=== PATIENT | male | born 1965 ===

== ENCOUNTER 2018-05-31 22:06 | Inpatient (IN) ==
[~2018-05-31 22:06] MED LIST: Diphtheria/Tetanus/Pertussis Vaccine Inj 0.5 ML Syringe IM ONE; Etomidate Inj 40 MG/20 ML Vial IV.PUSH ONE; ceFAZolin 2 GM Premix Inj 2 GM/50 ML PIGGYBACK IV.SIG ONE; fentaNYL Citrate Inj 100 MCG/2 ML Ampul ONE
[2018-05-31] MEDS ORDERED: Post-op Orders (for Pharmacy) OTHER ONE (22:25)
[2018-05-31] MEDS ORDERED: Naloxone Inj 0.4 MG/ML Vial IV.PUSH PRN (22:25)
[2018-05-31] MEDS ORDERED: Bisacodyl 10 MG Supp RECTAL PRN (22:25)
[2018-05-31] MEDS ORDERED: fentaNYL Citrate Inj 100 MCG/2 ML Ampul IV.PUSH ONE ×2 (22:29→22:31)
[2018-05-31] MEDS ORDERED: Diphtheria/Tetanus/Pertussis Vaccine Inj 0.5 ML Syringe IM ONE (22:29)
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
[2018-05-31 22:30] LABS: Baso # (Auto) 0.1 th/mm3 (0.0-0.2); Baso % (Auto) 0.5 % (0.0-2.0); Eos # (Auto) 0.1 th/mm3 (0.0-0.4); Eos % (Auto) 0.6 % (0.0-4.0); Hematocrit 40.2 % (39.0-51.0); Lymph # (Auto) 4.2 th/mm3 (1.0-4.8); Lymph % (Auto) 33.1 % (9.0-44.0); Mean Corpuscular HGB Conc 34.8 % (32.0-36.0); Mean Corpuscular Hemoglobin 30.8 pg (27.0-34.0); Mean Corpuscular Volume 88.5 fL (80.0-100.0); Mean Platelet Volume 7.5 fL (7.0-11.0); Mono % (Auto) 7.8 % (0.0-8.0); Neut # (Auto) 7.4 th/mm3 (1.8-7.7); Platelet Count 250 th/mm3 (150-450); Red Blood Count 4.55 mil/mm3 (4.50-5.90); Red Cell Distribution Width 12.9 % (11.6-17.2); White Blood Count 12.7 th/mm3 (4.0-11.0)
[2018-05-31] MEDS ORDERED: Sod Chloride 0.9% Inj 1,000 ML IV.CONT SCH (22:30)
[2018-05-31] MEDS ORDERED: ceFAZolin Inj 2,000 MG in Sodium Chlor 0.9% Inj 80 ML IV.SIG ONE (22:31)
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
[2018-05-31 22:46] LABS: Activated Partial Thrombo Time 23.7 sec (24.3-30.1); Prothrombin Time 10.3 sec (9.8-11.6)
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
[2018-05-31 22:57] LABS: Calcium 7.8 mg/dL (8.5-10.1); Carbon Dioxide 20.5 meq/L (21.0-32.0); Potassium 3.2 meq/L (3.5-5.1)
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
[2018-05-31] MEDS ORDERED: Succinylcholine Inj 100 MG/5 ML Syringe IV.PUSH ONE (23:00)
[2018-05-31] MEDS ORDERED: Phenylephrine/NS 1000 MCG/10ML Syringe IV.PUSH ONE (23:00)
[2018-05-31] MEDS ORDERED: Lidocaine PF 1% Inj 5 ML Syringe OTHER ONE (23:00)
[2018-05-31] MEDS ORDERED: ceFAZolin 2 GM Premix Inj 2 GM/50 ML PIGGYBACK IV.SIG ONE (23:00)
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
[2018-05-31] MEDS ORDERED: Sugammadex Inj 200 MG/2 ML Vial IV.PUSH ONE (23:34)
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
[2018-06-01] MEDS ORDERED: Post-op Orders (for Pharmacy) OTHER STA (01:03)
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
--- NOTE | 2018-06-01 01:20 | XR ---
EXAM DATE: 06/01/2018 12:00 AM EDT AGE/SEX: 89 years / Male INDICATIONS: External fixation of left lower leg fracture CLINICAL DATA: This is the patient's initial encounter. Patient reports that signs and symptoms have been present for 1 day and indicates a pain score of Nonresponsive. MEDICAL/SURGICAL HISTORY: Non-responsive. Non-responsive. [place]PAR[place] [facility] [place] 1V, [place]/2018. . FINDINGS: Multiple intraprocedural fluoroscopy images again demonstrate complex comminuted tibial and fibular f ractures. Fixation screws placed in the proximal and distal tibia as well as the base of the first an d fifth metatarsals. Final image demonstrates improved alignment of the tibiotalar joint with comminu dori calcaneal fracture. CONCLUSION: 1. Left tib-fib ORIF, as above. Electronically signed by: Jono Marie MD 06/01/2018 1:19 AM EDT
[2018-06-01] MEDS ORDERED: fentaNYL Citrate Inj 100 MCG/2 ML Ampul ONE (01:39)
[2018-06-01] MEDS ORDERED: *Meperidine Inj 25 MG/ML Vial PERIprocedural Use ONLY ONE (01:39)
[2018-06-01] MEDS: Gentamicin Inj 100 MG in Sodium Chlor 0.9% Inj 100 ML IV.SIG SCH ×4 (01:48→23:57)
[2018-06-01] MEDS ORDERED: ceFAZolin Inj 2,000 MG in Sodium Chlor 0.9% Inj 80 ML IV.SIG SCH (02:00)
[2018-06-01] MEDS ORDERED: *morphine SULFATE 4 MG/ML PERIprocedure ONLY ONE (02:16)
[2018-06-01] MEDS: ceFAZolin 2 GM Premix Inj 2 GM/50 ML PIGGYBACK IV.SIG SCH ×3 (03:05→18:46)
[2018-06-01] MEDS ORDERED: Chlorhexidine Gluconate 2% 1 Pack (2 Cloths) TOPICAL ONE (03:36)
[2018-06-01] MEDS ORDERED: Sodium Chlor 0.9% Inj 500 ML IV.SIG SCH (04:00)
[2018-06-01] MEDS: Morphine Inj 4 MG/ML Vial IV.PUSH PRN ×6 (06:04→20:29)
[2018-06-01 08:00] LABS: Baso % (Auto) 0.1 % (0.0-2.0); Hemoglobin 9.3 gm/dL (13.0-17.0); Lymph # (Auto) 0.9 th/mm3 (1.0-4.8); Lymph % (Auto) 5.2 % (9.0-44.0); Mean Corpuscular HGB Conc 34.3 % (32.0-36.0); Mean Corpuscular Volume 90.6 fL (80.0-100.0); Mean Platelet Volume 7.5 fL (7.0-11.0); Mono # (Auto) 1.3 th/mm3 (0.0-0.9); Mono % (Auto) 7.2 % (0.0-8.0); Neut # (Auto) 15.2 th/mm3 (1.8-7.7); Neut % (Auto) 87.5 % (16.0-70.0); Platelet Count 182 th/mm3 (150-450); Red Blood Count 2.98 mil/mm3 (4.50-5.90); Red Cell Distribution Width 12.7 % (11.6-17.2); White Blood Count 17.4 th/mm3 (4.0-11.0)
[2018-06-01] MEDS ORDERED: ceFAZolin Inj 1,000 MG in Sodium Chlor 0.9% Inj 100 ML IV.SIG SCH (08:00)
[2018-06-01] MEDS: Pantoprazole Inj 40 MG Vial IV.PUSH SCH (08:17)
[2018-06-01 08:22] LABS: Anion Gap 10 meq/L (5-15); Blood Urea Nitrogen 13 mg/dL (7-18); Calcium 7.2 mg/dL (8.5-10.1); Chloride 107 meq/L (98-107); Glomerular Filtration Rate Greater Than 89 mL/min (>89); Glucose,Random 132 mg/dL (74-106); Potassium 4.1 meq/L (3.5-5.1); Sodium 139 meq/L (136-145)
[2018-06-01 08:34] LABS: Total Protein 5.2 g/dL (6.4-8.2)
[2018-06-01] MEDS: Senna/Docusate Sodium 8.6/50 MG Tablet PO SCH ×2 (08:39→20:30)
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
[2018-06-01] MEDS: Enoxaparin Inj 30 MG/0.3 ML Syringe SQ SCH ×2 (12:11→22:04)
--- NOTE | 2018-06-01 15:24 | ECG ---
Date Performed: 06/01/2018 Time Performed: 05:04:38 PTAGE: 89 years EKG: SINUS TACHYCARDIA NONSPECIFIC T-WAVE ABNORMALITY ABNORMAL RHYTHM ECG INTERPRETATION BASED O N A DEFAULT AGE OF 38 YEARS NO PREVIOUS TRACING DOCTOR: Mary Ann Smith Interpretating Date/Time 06/01/2018 15:26:39
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
[2018-06-01 19:26] LABS: Hematocrit 23.3 % (39.0-51.0); Hemoglobin 7.9 gm/dL (13.0-17.0)
[2018-06-02 04:20] LABS: Baso # (Auto) 0.1 th/mm3 (0.0-0.2); Baso % (Auto) 0.4 % (0.0-2.0); Eos % (Auto) 0.1 % (0.0-4.0); Lymph # (Auto) 1.7 th/mm3 (1.0-4.8); Lymph % (Auto) 14.4 % (9.0-44.0); Mean Corpuscular HGB Conc 34.4 % (32.0-36.0); Mean Corpuscular Hemoglobin 30.9 pg (27.0-34.0); Mean Corpuscular Volume 90.1 fL (80.0-100.0); Mean Platelet Volume 7.5 fL (7.0-11.0); Mono # (Auto) 1.3 th/mm3 (0.0-0.9); Mono % (Auto) 11.3 % (0.0-8.0); Neut # (Auto) 8.5 th/mm3 (1.8-7.7); Neut % (Auto) 73.8 % (16.0-70.0); Platelet Count 149 th/mm3 (150-450); Red Blood Count 2.25 mil/mm3 (4.50-5.90); White Blood Count 11.5 th/mm3 (4.0-11.0)
[2018-06-02 04:33] LABS: Hematocrit 20.3 % (39.0-51.0)
[2018-06-02] MEDS: Morphine Inj 4 MG/ML Vial IV.PUSH PRN ×3 (05:50→11:30)
[2018-06-02 06:25] LABS: Platelet Estimate Normal (Normal); Platelet Morphology Normal (Normal); RBC Morphology Normal (Normal)
--- NOTE | 2018-06-02 06:40 | P.PNOP ---
Subjective Interval history: s/p left tibia and calcaneus fractures with degloving and wound vac application by Dr Stef Garcia Physical Exam Vital signs: Vital Signs 06/01/18 08:00 06/01/18 12:00 06/01/18 16:00 Temperature 98.0 F 98.1 F 98.5 F Pulse Rate 108 H 103 H 105 H Respiratory Rate 18 18 18 Blood Pressure 113/69 110/70 132/68 Pulse Oximetry 100 99 96 06/01/18 20:00 06/02/18 00:00 06/02/18 05:36 Temperature 99.2 F 99.3 F 98.7 F Pulse Rate 108 H 115 H 103 H Respiratory Rate 20 20 18 Blood Pressure 123/77 130/73 118/71 Pulse Oximetry 96 99 06/02/18 05:51 Temperature 98.2 F Pulse Rate 108 H Respiratory Rate 18 Blood Pressure 108/68 Pulse Oximetry 94 L Intake & Output 06/01/18 06/01/18 06/02/18 06:59 18:59 06:59 Intake Total 4070 / 4070 1255.0 / 1255.0 1152.5 / 1152.5 Output Total 1240 / 1240 160 / 160 20 / 20 Balance 2830 / 2830 1095.0 / 1095.0 1132.5 / 1132.5 Weight 89.358 kg Intake: IV 50 / 50 1255.0 / 1255.0 1152.5 / 1152.5 LR 1000 mL Inj 1,000 ML @ 100 1000 / 1000 1000 / 1000 mls/hr IV.CONT .Q10H [facility] Rx#: [id number] Gentamicin Inj 100 MG In NS Inj 205.0 / 205.0 102.5 / 102.5 100 ML @ 102.5 mls/hr IV.SIG Q8H [facility] Rx#:[id number] Ancef 2 GM Premix Inj 2 gm In 50 / 50 50 / 50 50 / 50 50 ml @ 100 mls/hr IV.SIG Q8H [facility] Rx#:[id number] Oral 320 / 320 Anesthesia Amount 3700 / 3700 Intake (Blood Product) Amt 0 / 0 Rbc As-3 Leukoreduced Unit 0 / 0 [id number] Output: Estimated Blood Loss 500 / 500 Urine Amount (Catheter) 600 / 600 Indwelling Urethral Catheter 600 / 600 Wound Vac Amount 140 / 140 160 / 160 20 / 20 Left Leg 160 / 160 Left Lower Leg 140 / 140 20 / 20 Other: Mode Setting Left Leg Continuous Continuous Left Lower Leg Continuous Continuous # Voids 2 Date of Last Bowel Movement 05/31/18 05/31/18 05/31/18 Weight On Admission 89.4 kg Narrative: LLE: +vac. good seal. nvi. +exfix and splint - Urinary Catheter Management Indwelling Urethral Catheter Cath placed during this visit: yes Reason for continuing: Other continuation reason Insertion date: 05/31/18 Results - Labs CBC & Chem 7: 06/02/18 03:53 06/01/18 07:20 Laboratory Results - last 24 hr 06/01/18 06/01/18 06/01/18 07:20 07:20 18:54 WBC 17.4 H RBC 2.98 L Hgb 9.3 L D 7.9 L Hct 27.0 L 23.3 L MCV 90.6 MCH 31.0 MCHC 34.3 RDW 12.7 Plt Count 182 MPV 7.5 Prelim Diff (Auto) Neut % (Auto) 87.5 H Lymph % (Auto) 5.2 L [place] % (Auto) 7.2 Eos % (Auto) 0.0 Baso % (Auto) 0.1 Neut # (Auto) 15.2 H Lymph # (Auto) 0.9 L [place] # (Auto) 1.3 H Eos # (Auto) 0.0 Baso # (Auto) 0.0 WBC Differential . Diff Scan Differential Comment Auto diff final Platelet Estimate Platelet Morphology RBC Morphology Sodium 139 Potassium 4.1 D Chloride 107 Carbon Dioxide 22.0 Anion Gap 10 BUN 13 Creatinine 0.75 Estimated GFR Greater than 89 Random Glucose 132 H Calcium 7.2 L* Prot Corrected Calcium 8.2 L Total Protein 5.2 L MTS Gel Crossmatch 06/02/18 06/02/18 03:53 04:42 WBC 11.5 H RBC 2.25 L Hgb 7.0 L Hct 20.3 L* MCV 90.1 MCH 30.9 MCHC 34.4 RDW 13.0 Plt Count 149 L MPV 7.5 Prelim Diff (Auto) Slide review pending Neut % (Auto) 73.8 H Lymph % (Auto) 14.4 [place] % (Auto) 11.3 H Eos % (Auto) 0.1 Baso % (Auto) 0.4 Neut # (Auto) 8.5 H Lymph # (Auto) 1.7 [place] # (Auto) 1.3 H Eos # (Auto) 0.0 Baso # (Auto) 0.1 WBC Differential . Diff Scan Auto diff confirmed Differential Comment . Platelet Estimate Normal Platelet Morphology Normal RBC Morphology Normal Sodium Potassium Chloride Carbon Dioxide Anion Gap BUN Creatinine Estimated GFR Random Glucose Calcium Prot Corrected Calcium Total Protein MTS Gel Crossmatch See Detail - Imaging Impressions Ankle CT 06/01/18 00:00 CONCLUSION: 1. Severely comminuted fracture of the talus. 2. Comminuted fracture of the calcaneus. 3. Tibial and fibular fractures again noted with external fixation device in place. Assessment and Plan - Assessment and Plan 1) Grade 3 open left tibia fracture, segmental. 2) Open left calcaneus fracture. 3) Unstable left bimalleolar ankle fracture dislocation. 4) Degloving injury left ankle and foot PLAN: plan for OR today with Dr Parekh for repeat I&D and revision of exfix. possible IMN of tibia depending on soft tissue sign consents
[2018-06-02 06:46] LABS: Chloride 105 meq/L (98-107); Potassium 3.9 meq/L (3.5-5.1); Sodium 140 meq/L (136-145)
[2018-06-02 06:47] LABS: Anion Gap 11 meq/L (5-15); Blood Urea Nitrogen 13 mg/dL (7-18); Calcium 7.1 mg/dL (8.5-10.1); Creatine Kinase 831 U/L (39-308); Glomerular Filtration Rate Greater Than 89 mL/min (>89); Glucose,Random 107 mg/dL (74-106)
[2018-06-02 07:15] LABS: CKMB Percent 1.5 % (0.0-4.0); Creatine Kinase MB 12.2 ng/mL (0.5-3.6); Total Protein 5.2 g/dL (6.4-8.2)
[2018-06-02] MEDS: Senna/Docusate Sodium 8.6/50 MG Tablet PO SCH ×2 (08:04→20:53)
[2018-06-02] MEDS: Enoxaparin Inj 30 MG/0.3 ML Syringe SQ SCH ×2 (08:04→20:52)
[2018-06-02] MEDS: Gentamicin Inj 100 MG in Sodium Chlor 0.9% Inj 100 ML IV.SIG SCH (08:04)
[2018-06-02] MEDS: Pantoprazole Inj 40 MG Vial IV.PUSH SCH (08:05)
[2018-06-02] MEDS ORDERED: Neostigmine Inj 5 MG/5 ML Syringe IV.PUSH ONE (08:57)
[2018-06-02] MEDS ORDERED: Glycopyrrolate Inj 1 MG/5 ML Syringe IV.PUSH ONE (08:57)
[2018-06-02] MEDS ORDERED: Phenylephrine/NS 1000 MCG/10ML Syringe IV.PUSH ONE (08:57)
[2018-06-02] MEDS ORDERED: Lidocaine PF 1% Inj 5 ML Syringe OTHER ONE (08:57)
[2018-06-02] MEDS ORDERED: Post-op Orders (for Pharmacy) OTHER STA (10:09)
--- NOTE | 2018-06-02 10:19 | P.OP ---
- Preoperative Diagnosis (1) Open left calcaneal fracture (2) Open fracture of left distal tibia, type III, with routine healing (3) Fracture of left talus (4) Bimalleolar fracture of left ankle Date of procedure: 06/02/18 Procedure: Irrigation and debridement of open left tibia fracture, irrigation and debridement of open left calcaneus fracture, open reduction internal fixation left calcaneus fracture, revision of external fixation, application of wound VAC dressing Anesthesia: GETA Surgeon: Jenaro Bennett MD Pumper Gager Apprentice: EZ Castro PA-C The surgical procedure was assisted by my physician assistant executive housekeeper. My P.A. presence was necessary throughout this case for the manipulation and positioning of the surgical extremity. My P.A. was assisting me throughout the duration of this procedure. The skill set of a physician assistant executive housekeeper was medically necessary to complete this procedure. During the surgical case the surgical pathologist was working at the back table and the physician assistant executive housekeeper was directly assisting me. Operation and Findings: Felicitas is a 52-year-old male who sustained a near amputation type injury to his left lower extremity. He was taken to the operating room on night of injury for irrigation debridement of open fractures and external fixation. He returned to the operating room today. He was given IV sedation and general anesthesia. Patient was logrolled and spinal precautions were maintained during positioning of patient. He was placed supine on the operating room table. Timeout procedure was performed. At this point a portion of the external fixator was removed. Clamps were loosened. Clamps and bars were removed. The pins were left in place. Left leg was prepped with alcohol followed Hibiclens and draped usual sterile fashion. IV antibiotics were administered. Procedure began with irrigation debridement of the left tibia. The proximal tibia fracture was exposed. Curettes and rongeurs were used to debride bone. Pulsatile lavage was then used to copiously irrigate the wound. Overall the wound appeared to be clean. The skin was not closable over the tibia fracture. Next, attention was turned towards to the left calcaneus. The traumatic lacerations were opened around the foot. The calcaneus fracture was visualized. Curettes and rongeurs were used to debride bone. Overall the wound appeared to be relatively clean. The wound was now thoroughly irrigated with pulsatile lavage. The calcaneus fracture was visualized through the open wounds. Decision was made to proceed with open reduction internal fixation. The posterior tuberosity fragments were reduced. A fracture tenaculum was placed around the calcaneus through the existing open wounds. No new incisions were necessary. The fracture keyed in excellent alignment. 3 guide pins for the 4.0 cannulated screws were placed from superior to inferior. Fluoroscopy confirmed appropriate guidepin placement. Screw lengths were measured. Appropriate length screws were now placed. Good compression was obtained. The traumatic lacerations were now closed with 3-0 PDS and 3-0 nylon. At this point the external fixator was placed back onto the pins. Traction was applied. Fractures were manipulated. Fractures were held in a reduced position. External fixator was reconstructed. Clamps were tightened to hold reduction. Fluoroscopy confirmed reasonable alignment of the tibia and ankle fractures. Last attention was turned towards wound VAC dressing. VAC dressings were cut to fit the wound. There was a wound over the tibia as well as over the medial ankle which is not closable. VAC dressings were sealed appropriately. Sterile dressings were applied. Patient was awakened and transferred to recovery room in stable condition. Needle sponge counts were correct.
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
--- NOTE | 2018-06-02 11:26 | P.PNOP ---
Subjective Interval history: POD 0 s/p I&D with ORIF left calcaneus and revision exfix stable in pacu Physical Exam Vital signs: Vital Signs 06/01/18 12:00 06/01/18 16:00 06/01/18 20:00 Temperature 98.1 F 98.5 F 99.2 F Pulse Rate 103 H 105 H 108 H Respiratory Rate 18 18 20 Blood Pressure 110/70 132/68 123/77 Pulse Oximetry 99 96 96 06/02/18 00:00 06/02/18 05:36 06/02/18 05:51 Temperature 99.3 F 98.7 F 98.2 F Pulse Rate 115 H 103 H 108 H Respiratory Rate 20 18 18 Blood Pressure 130/73 118/71 108/68 Pulse Oximetry 99 94 L Intake & Output 06/01/18 06/02/18 06/02/18 18:59 06:59 18:59 Intake Total 1255.0 / 1255.0 2112.5 / 2112.5 2100 / 2100 Output Total 160 / 160 1115 / 1115 50 / 50 Balance 1095.0 / 1095.0 997.5 / 997.5 2049 / 2049 Weight 89.4 kg Intake: IV 1255.0 / 1255.0 1152.5 / 1152.5 1000 / 1000 LR 1000 mL Inj 1,000 ML @ 100 1000 / 1000 1000 / 1000 1000 / 1000 mls/hr IV.CONT .Q10H [facility] Rx#: [id number] Gentamicin Inj 100 MG In NS Inj 205.0 / 205.0 102.5 / 102.5 100 ML @ 102.5 mls/hr IV.SIG Q8H [facility] Rx#:[id number] Ancef 2 GM Premix Inj 2 gm In 50 / 50 50 / 50 50 ml @ 100 mls/hr IV.SIG Q8H [facility] Rx#:[id number] Oral 960 / 960 Anesthesia Amount 700 / 700 Intake (Blood Product) Amt 0 / 0 400 / 400 Rbc As-3 Leukoreduced Unit 0 / 0 [id number] Rbc As-3 Leukoreduced Unit 0 / 0 400 / 400 [id number] Output: Urine 1075 / 1075 Estimated Blood Loss 50 / 50 Wound Vac Amount 160 / 160 40 / 40 Left Leg 160 / 160 Left Lower Leg 40 / 40 Other: Mode Setting Left Leg Continuous Continuous Left Lower Leg Continuous Continuous Date of Last Bowel Movement 05/31/18 05/31/18 05/31/18 Narrative: LLE: dressinsg clean and dry. exfix in place. vac in place. good seal. - Urinary Catheter Management Indwelling Urethral Catheter Cath placed during this visit: yes Reason for continuing: Other continuation reason Insertion date: 05/31/18 Results - Labs CBC & Chem 7: 06/02/18 03:53 06/02/18 03:53 Laboratory Results - last 24 hr 06/01/18 06/02/18 06/02/18 18:54 03:53 03:53 WBC 11.5 H RBC 2.25 L Hgb 7.9 L 7.0 L Hct 23.3 L 20.3 L* MCV 90.1 MCH 30.9 MCHC 34.4 RDW 13.0 Plt Count 149 L MPV 7.5 Prelim Diff (Auto) Slide review pending Neut % (Auto) 73.8 H Lymph % (Auto) 14.4 [place] % (Auto) 11.3 H Eos % (Auto) 0.1 Baso % (Auto) 0.4 Neut # (Auto) 8.5 H Lymph # (Auto) 1.7 [place] # (Auto) 1.3 H Eos # (Auto) 0.0 Baso # (Auto) 0.1 WBC Differential . Diff Scan Auto diff confirmed Differential Comment . Platelet Estimate Normal Platelet Morphology Normal RBC Morphology Normal Sodium 140 Potassium 3.9 Chloride 105 Carbon Dioxide 24.0 Anion Gap 11 BUN 13 Creatinine 0.72 Estimated GFR Greater than 89 Random Glucose 107 H Calcium 7.1 L* Prot Corrected Calcium 8.1 L Total Creatine Kinase 831 H CK-MB (CK-2) 12.2 H CK-MB (CK-2) % 1.5 Total Protein 5.2 L MTS Gel Crossmatch 06/02/18 04:42 WBC RBC Hgb Hct MCV MCH MCHC RDW Plt Count MPV Prelim Diff (Auto) Neut % (Auto) Lymph % (Auto) [place] % (Auto) Eos % (Auto) Baso % (Auto) Neut # (Auto) Lymph # (Auto) [place] # (Auto) Eos # (Auto) Baso # (Auto) WBC Differential Diff Scan Differential Comment Platelet Estimate Platelet Morphology RBC Morphology Sodium Potassium Chloride Carbon Dioxide Anion Gap BUN Creatinine Estimated GFR Random Glucose Calcium Prot Corrected Calcium Total Creatine Kinase CK-MB (CK-2) CK-MB (CK-2) % Total Protein MTS Gel Crossmatch See Detail - Imaging Impressions Ankle CT 06/01/18 00:00 CONCLUSION: 1. Severely comminuted fracture of the talus. 2. Comminuted fracture of the calcaneus. 3. Tibial and fibular fractures again noted with external fixation device in place. Assessment and Plan - Assessment and Plan 1) Grade 3 open left tibia fracture, segmental s/p revision exfix and I&D - POD 0 2) Open left calcaneus fracture s/p ORIF - POD 0 3) Unstable left bimalleolar ankle fracture dislocation. 4) Degloving injury left ankle and foot s/p I&D and vac application - POD 0 PLAN: -NWB LLE -elevate -maintain exfix and vac at all times -vac settings: 100mmHg, 3:1 -will plan for repeat I&D and possible IMN tibia next week
[2018-06-02] MEDS ORDERED: fentaNYL Citrate Inj 100 MCG/2 ML Ampul ONE (11:30)
[2018-06-02] MEDS ORDERED: *morphine SULFATE 4 MG/ML PERIprocedure ONLY ONE (11:31)
[2018-06-02] MEDS ORDERED: Morphine Inj 4 MG/ML Vial ONE (11:31)
--- NOTE | 2018-06-02 11:41 | XR ---
EXAM DATE: 06/02/2018 12:00 AM EDT AGE/SEX: 52 years / Male INDICATIONS: Left leg I&D. Revision of external fixator. Application of wound vac. CLINICAL DATA: This is the patient's subsequent encounter. Patient reports that signs and symptoms h ave been present for 3 days and indicates a pain score of Nonresponsive. MEDICAL/SURGICAL HISTORY: Non-responsive. Non-responsive. [place] [facility] [place]. . FINDINGS: Pins are seen bridging the calcaneal fracture. Patient is in an extra-axial fixator. There continues to be minimal overriding, approximately 1 cm across the tibia fracture. There is minimal displacement by approximately one third bone width as well. CONCLUSION: Alignment as above. Electronically signed by: Carrillo Martinez MD 06/02/2018 11:40 AM EDT
--- NOTE | 2018-06-02 12:43 | XR ---
EXAM DATE: 06/02/2018 12:00 AM EDT AGE/SEX: 52 years / Male INDICATIONS: Post-op ORIF left calcaneous fracture. CLINICAL DATA: This is the patient's subsequent encounter. Patient reports that signs and symptoms h ave been present for 3 days and indicates a pain score of Nonresponsive. MEDICAL/SURGICAL HISTORY: Non-responsive. Non-responsive. COMPARISON: [facility], TIBIA FIBULA LEFT 2V, 06/02/2018. . FINDINGS: The patient is status post ORIF of left calcaneal fracture. The screws traverse the fracture and appe ar to be in good position. CONCLUSION: Status post ORIF of left calcaneal fracture. Electronically signed by: Jesús Hardy MD 06/02/2018 12:41 PM EDT
[2018-06-02] MEDS: Ketorolac Inj 30 MG/ML (IVP) Vial IV.PUSH SCH ×2 (12:50→18:36)
[2018-06-02] MEDS: Calcium/Vitamin D 250/125 MG Tablet PO SCH ×2 (12:57→18:31)
[2018-06-02] MEDS: ceFAZolin 2 GM Premix Inj 2 GM/50 ML PIGGYBACK IV.SIG SCH (16:35)
[2018-06-02] MEDS: Gentamicin/NS 80 mg Premix 100 ML IV.SIG SCH (17:47)
[2018-06-02] MEDS: Melatonin 5 MG Tablet PO SCH (22:16)
[2018-06-03] MEDS: ceFAZolin 2 GM Premix Inj 2 GM/50 ML PIGGYBACK IV.SIG SCH ×3 (00:09→17:00)
[2018-06-03] MEDS: Gentamicin/NS 80 mg Premix 100 ML IV.SIG SCH ×3 (01:11→19:12)
[2018-06-03] MEDS: Ketorolac Inj 30 MG/ML (IVP) Vial IV.PUSH SCH ×2 (02:14→10:48)
[2018-06-03 05:54] LABS: Anion Gap 9 meq/L (5-15); Blood Urea Nitrogen 11 mg/dL (7-18); Calcium 7.7 mg/dL (8.5-10.1); Carbon Dioxide 25.4 meq/L (21.0-32.0); Chloride 105 meq/L (98-107); Glomerular Filtration Rate Greater Than 89 mL/min (>89); Glucose,Random 100 mg/dL (74-106); Potassium 3.8 meq/L (3.5-5.1); Sodium 139 meq/L (136-145)
--- NOTE | 2018-06-03 07:17 | P.PNOP ---
Subjective Interval history: No complaint. Comfortable. Getting transfusion Physical Exam Vital signs: Vital Signs 06/02/18 08:00 06/02/18 09:35 06/02/18 11:22 Temperature 97.8 F 98.1 F 97.7 F Pulse Rate 98 H 96 H 107 H Respiratory Rate 16 18 15 Blood Pressure 115/69 94/51 L 124/85 Pulse Oximetry 98 94 L 06/02/18 11:30 06/02/18 11:45 06/02/18 12:00 Temperature 97.8 F Pulse Rate 109 H 102 H 100 H Respiratory Rate 17 16 16 Blood Pressure 155/77 H 141/85 H 148/88 H Pulse Oximetry 94 L 95 94 L 06/02/18 13:55 06/02/18 17:33 06/02/18 17:53 Temperature 96.6 F L Pulse Rate 109 H Respiratory Rate 17 15 16 Blood Pressure 117/78 Pulse Oximetry 96 06/02/18 20:00 06/02/18 23:03 06/03/18 00:00 Temperature 98.4 F 98.5 F Pulse Rate 100 H 100 H Respiratory Rate 18 19 18 Blood Pressure 117/68 121/69 Pulse Oximetry 93 L 95 06/03/18 01:11 06/03/18 03:31 06/03/18 04:00 Temperature 98.4 F Pulse Rate 108 H Respiratory Rate 19 19 18 Blood Pressure 109/61 Pulse Oximetry 98 06/03/18 06:33 06/03/18 06:49 Temperature 98.7 F 98.7 F Pulse Rate 97 H 95 H Respiratory Rate 18 15 Blood Pressure 92/60 L 91/54 L Pulse Oximetry 99 95 Intake & Output 06/02/18 06/03/18 06/03/18 18:59 06:59 18:59 Intake Total 2250 / 2250 150 / 150 Output Total 100 / 100 1200 / 1200 Balance 2150 / 2150 -1050 / -1050 Weight 89 kg Intake: IV 1150 / 1150 150 / 150 LR 1000 mL Inj 1,000 ML @ 100 1000 / 1000 mls/hr IV.CONT .Q10H [facility] Rx#: [id number] Gentamicin/NS 80 mg Premix 100 100 / 100 100 / 100 ML @ 200 mls/hr IV.SIG Q8H [facility] Rx#:[id number] Ancef 2 GM Premix Inj 2 gm In 50 / 50 50 / 50 50 ml @ 100 mls/hr IV.SIG Q8H [facility] Rx#:[id number] Anesthesia Amount 700 / 700 Intake (Blood Product) Amt 400 / 400 0 / 0 Rbc As-3 Leukoreduced Unit 0 / 0 [id number] Rbc As-3 Leukoreduced Unit 0 / 0 [id number] Rbc As-3 Leukoreduced Unit 400 / 400 [id number] Output: Urine 1200 / 1200 Estimated Blood Loss 50 / 50 Wound Vac Amount 50 / 50 Left Lower Leg 50 / 50 Other: Mode Setting Left Lower Leg Intermittent Continuous # Voids 3 Date of Last Bowel Movement 05/31/18 Narrative: LLE: dressinsg clean and dry. exfix in place. vac in place. good seal. Moderate swelling of the left foot/toes - Urinary Catheter Management Indwelling Urethral Catheter Cath placed during this visit: yes Reason for continuing: Other continuation reason Insertion date: 05/31/18 Results - Labs CBC & Chem 7: 06/03/18 04:51 06/03/18 04:51 Laboratory Results - last 24 hr 06/02/18 06/02/18 06/03/18 03:53 04:42 04:51 Hgb 7.0 L Hct 20.0 L* Sodium Potassium Chloride Carbon Dioxide Anion Gap BUN Creatinine Estimated GFR Random Glucose Calcium Prot Corrected Calcium 8.1 L CK-MB (CK-2) 12.2 H CK-MB (CK-2) % 1.5 Total Protein 5.2 L MTS Gel Crossmatch See Detail 06/03/18 06/03/18 04:51 05:53 Hgb Hct Sodium 139 Potassium 3.8 Chloride 105 Carbon Dioxide 25.4 Anion Gap 9 BUN 11 Creatinine 0.63 Estimated GFR Greater than 89 Random Glucose 100 Calcium 7.7 L Prot Corrected Calcium CK-MB (CK-2) CK-MB (CK-2) % Total Protein MTS Gel Crossmatch See Detail - Imaging Impressions Foot X-Ray 06/02/18 00:00 CONCLUSION: Status post ORIF of left calcaneal fracture. Tibia/Fibula X-Ray 06/02/18 00:00 CONCLUSION: Alignment as above. Assessment and Plan - Assessment and Plan 1) Grade 3 open left tibia fracture, segmental s/p revision exfix and I&D - POD 1/2 2) Open left calcaneus fracture s/p ORIF - POD 1 3) Unstable left bimalleolar ankle fracture dislocation. 4) Degloving injury left ankle and foot s/p I&D and vac application - POD 1/2 PLAN: -NWB LLE -elevate -maintain exfix and vac at all times -vac settings: 100mmHg, 3:1 -will plan for repeat I&D and possible IMN tibia next week -Getting transfusion for hemoglobin 7.0. -Stable orthopedically
[2018-06-03] MEDS: Enoxaparin Inj 30 MG/0.3 ML Syringe SQ SCH ×2 (08:35→20:00)
[2018-06-03] MEDS: Calcium/Vitamin D 250/125 MG Tablet PO SCH ×3 (08:35→18:02)
[2018-06-03] MEDS: Pantoprazole Inj 40 MG Vial IV.PUSH SCH (08:35)
[2018-06-03] MEDS: Senna/Docusate Sodium 8.6/50 MG Tablet PO SCH ×2 (08:35→20:00)
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
[2018-06-03 17:37] LABS: CKMB Percent 1.2 % (0.0-4.0); Creatine Kinase MB 5.8 ng/mL (0.5-3.6)
[2018-06-03] MEDS: Melatonin 5 MG Tablet PO SCH (20:01)
[2018-06-03] MEDS: Morphine Inj 4 MG/ML Vial IV.PUSH PRN (21:46)
[2018-06-04] MEDS: ceFAZolin 2 GM Premix Inj 2 GM/50 ML PIGGYBACK IV.SIG SCH ×3 (00:59→17:15)
[2018-06-04] MEDS: Gentamicin/NS 80 mg Premix 100 ML IV.SIG SCH ×2 (01:35→10:00)
[2018-06-04 04:58] LABS: Baso % (Auto) 0.4 % (0.0-2.0); Eos # (Auto) 0.1 th/mm3 (0.0-0.4); Eos % (Auto) 0.9 % (0.0-4.0); Hematocrit 24.1 % (39.0-51.0); Hemoglobin 8.2 gm/dL (13.0-17.0); Lymph # (Auto) 1.9 th/mm3 (1.0-4.8); Lymph % (Auto) 19.7 % (9.0-44.0); Mean Corpuscular HGB Conc 34.3 % (32.0-36.0); Mean Corpuscular Hemoglobin 30.5 pg (27.0-34.0); Mean Platelet Volume 7.3 fL (7.0-11.0); Mono # (Auto) 1.1 th/mm3 (0.0-0.9); Neut # (Auto) 6.6 th/mm3 (1.8-7.7); Platelet Count 152 th/mm3 (150-450); Red Cell Distribution Width 14.3 % (11.6-17.2); White Blood Count 9.7 th/mm3 (4.0-11.0)
[2018-06-04] MEDS: Senna/Docusate Sodium 8.6/50 MG Tablet PO SCH ×2 (08:19→21:00)
[2018-06-04] MEDS: Enoxaparin Inj 30 MG/0.3 ML Syringe SQ SCH ×2 (08:19→21:00)
[2018-06-04] MEDS: Pantoprazole Inj 40 MG Vial IV.PUSH SCH (08:19)
[2018-06-04] MEDS: Calcium/Vitamin D 250/125 MG Tablet PO SCH ×3 (08:19→17:18)
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
--- NOTE | 2018-06-04 09:23 | P.PNOP ---
Subjective Interval history: Continues to have moderate pain left leg into the foot. Urinating well. Appetite 'ok'. Questions about further surgery. Physical Exam Vital signs: Vital Signs 06/03/18 09:56 06/03/18 12:00 06/03/18 15:17 Temperature 98.3 F 97.8 F 98.1 F Pulse Rate 90 92 H 87 Respiratory Rate 16 18 16 Blood Pressure 118/70 116/54 L 105/55 L Pulse Oximetry 96 99 95 06/03/18 15:33 06/03/18 19:13 06/03/18 19:45 Temperature 98 F 98.1 F 97.7 F Pulse Rate 92 H 91 H 98 H Respiratory Rate 16 16 18 Blood Pressure 109/61 106/57 L 124/59 L Pulse Oximetry 95 95 97 06/03/18 23:03 06/04/18 01:06 06/04/18 03:31 Temperature 100.3 F H 98.7 F 98.0 F Pulse Rate 92 H 89 Respiratory Rate 18 18 Blood Pressure 105/55 L 125/71 Pulse Oximetry 96 97 Intake & Output 06/03/18 06/04/18 06/04/18 18:59 06:59 18:59 Intake Total 100 / 100 490 / 490 Output Total 500 / 500 Balance -400 / -400 490 / 490 Weight 89 kg Intake: IV 100 / 100 250 / 250 Gentamicin/NS 80 mg Premix 100 100 / 100 200 / 200 ML @ 200 mls/hr IV.SIG Q8H ARULITO Rx#:[id number] Ancef 2 GM Premix Inj 2 gm In 50 / 50 50 ml @ 100 mls/hr IV.SIG Q8H RAULITO Rx#:[id number] Oral 240 / 240 Intake (Blood Product) Amt 0 / 0 0 / 0 Rbc As-3 Leukoreduced Unit 0 / 0 [id number] Rbc As-3 Leukoreduced Unit 0 / 0 0 / 0 [id number] Output: Urine 500 / 500 Other: Mode Setting Left Lower Leg Continuous Continuous # Voids 1 Date of Last Bowel Movement 06/02/18 # Bowel Movements 0 Narrative: Sitting up in bed NAD LLE ExFix in place, dressing left calcaneus, swelling toes, no erythema Wiggles toes freely, sensation intact, +nvi, cap refill less than 2 secs - Urinary Catheter Management Indwelling Urethral Catheter Cath placed during this visit: yes, but has since been removed by the nurse Reason for continuing: Other continuation reason Insertion date: 05/31/18 Removal date: 06/01/18 Results - Labs CBC & Chem 7: 06/04/18 04:31 06/03/18 04:51 Laboratory Results - last 24 hr 06/02/18 06/03/18 06/03/18 04:42 04:51 05:53 WBC RBC Hgb Hct MCV MCH MCHC RDW Plt Count MPV Neut % (Auto) Lymph % (Auto) [place] % (Auto) Eos % (Auto) Baso % (Auto) Neut # (Auto) Lymph # (Auto) [place] # (Auto) Eos # (Auto) Baso # (Auto) WBC Differential Differential Comment Total Creatine Kinase 477 H CK-MB (CK-2) 5.8 H CK-MB (CK-2) % 1.2 Blood Type Antibody Screen MTS Gel Crossmatch See Detail See Detail 06/03/18 06/04/18 12:42 04:31 WBC 9.7 RBC 2.70 L Hgb 8.2 L Hct 24.1 L MCV 89.0 MCH 30.5 MCHC 34.3 RDW 14.3 Plt Count 152 MPV 7.3 Neut % (Auto) 68.0 Lymph % (Auto) 19.7 [place] % (Auto) 11.0 H Eos % (Auto) 0.9 Baso % (Auto) 0.4 Neut # (Auto) 6.6 Lymph # (Auto) 1.9 [place] # (Auto) 1.1 H Eos # (Auto) 0.1 Baso # (Auto) 0.0 WBC Differential . Differential Comment Auto diff final Total Creatine Kinase CK-MB (CK-2) CK-MB (CK-2) % Blood Type A Negative Antibody Screen Negative MTS Gel Crossmatch See Detail Assessment and Plan - Assessment and Plan 1) Grade 3 open left tibia fracture, segmental s/p revision exfix and I&D - POD 3 2) Open left calcaneus fracture s/p ORIF - POD 2 3) Unstable left bimalleolar ankle fracture dislocation. 4) Degloving injury left ankle and foot s/p I&D and vac application - POD 3 PLAN: -Continues NWB LLE -Ice / elevate daily -maintain exfix and vac at all times -vac settings: 100mmHg, 3:1 -Dr. Parekh to consider repeat I&D and possible IMN tibia next week - Hg improved to 8.2 today. Monitor. -Stable orthopedically
[2018-06-04] MEDS: Morphine Inj 4 MG/ML Vial IV.PUSH PRN (18:11)
[2018-06-05] MEDS: ceFAZolin 2 GM Premix Inj 2 GM/50 ML PIGGYBACK IV.SIG SCH ×2 (00:36→08:31)
[2018-06-05] MEDS: Famotidine 20 MG Tablet PO SCH ×3 (00:36→20:43)
[2018-06-05] MEDS: Melatonin 5 MG Tablet PO SCH ×2 (00:37→20:44)
[2018-06-05] MEDS: Pantoprazole Inj 40 MG Vial IV.PUSH SCH (08:31)
[2018-06-05] MEDS: Morphine Inj 4 MG/ML Vial IV.PUSH PRN ×5 (08:31→20:42)
[2018-06-05] MEDS: Senna/Docusate Sodium 8.6/50 MG Tablet PO SCH ×2 (08:31→20:43)
[2018-06-05] MEDS: Calcium/Vitamin D 250/125 MG Tablet PO SCH ×3 (08:31→17:41)
[2018-06-05] MEDS: Enoxaparin Inj 30 MG/0.3 ML Syringe SQ SCH ×2 (08:32→20:43)
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
--- NOTE | 2018-06-05 16:27 | P.PNNS ---
Subjective Interval history: complains of moderate upper to mid back pain and left leg pain. He underwent ext fix for left tibia fx and ORIF left calcaneous fracture, I&D and vac placement for degloving of left ankle and foot. He is sitting up in chair with TLSO brace. Movement limited left leg due to injuries. Moving right leg well. Physical Exam Vital signs: Vital Signs 06/04/18 20:00 06/04/18 21:00 06/05/18 00:00 Temperature 98.7 F 98.2 F Pulse Rate 97 H 97 H Respiratory Rate 18 18 18 Blood Pressure 116/62 110/68 Pulse Oximetry 98 99 06/05/18 06:15 06/05/18 08:00 06/05/18 12:00 Temperature 98.1 F 97.8 F Pulse Rate 86 92 H Respiratory Rate 16 16 18 Blood Pressure 106/69 111/71 Pulse Oximetry 97 97 Intake & Output 06/04/18 06/05/18 06/05/18 18:59 06:59 18:59 Intake Total 700 / 700 1410 / 1410 50 / 50 Output Total 400 / 400 20 / 20 Balance 700 / 700 1010 / 1010 30 / 30 Weight 89.4 kg Intake: IV 100 / 100 1150 / 1150 50 / 50 Ancef 2 GM Premix Inj 2 gm In 100 / 100 50 / 50 50 / 50 50 ml @ 100 mls/hr IV.SIG Q8H RAULITO Rx#:[id number] Oral 600 / 600 260 / 260 Output: Wound Vac Amount 400 / 400 20 / 20 Left Lower Leg 400 / 400 20 / 20 Other: Mode Setting Left Lower Leg Continuous Continuous Intermittent # Voids 3 150 Date of Last Bowel Movement 06/02/18 Narrative: Awake, alert NAD speech fluent sitting up in chair with TLSO brace Left leg with ex/fix in place, wound vac in place moving right leg well - Urinary Catheter Management Indwelling Urethral Catheter Cath placed during this visit: yes, but has since been removed by the nurse Reason for continuing: Other continuation reason Insertion date: 05/31/18 Removal date: 06/01/18 Assessment and Plan - Plan I have reviewed the clinical and radiological findings Chest X-Ray 05/31/18 22:07 CONCLUSION: No acute abnormality demonstrated. Pelvis X-Ray 05/31/18 22:07 CONCLUSION: No evidence of pelvic fracture. Abdomen/Pelvis CT 05/31/18 22:11 CONCLUSION: 1. No acute abnormality. 2. Small cysts of both kidneys. 3. Small hiatal hernia. 4. Old lower right rib fractures. No acute bony abnormality is demonstrated. Cervical Spine CT 05/31/18 22:11 CONCLUSION: 1. Intact cervical spine. 2. Mild degenerative changes at C5/C6. Chest CT 05/31/18 22:11 CONCLUSION: 1. Mild acute compression/burst fracture of T5 with a small paraspinous hematoma but no perceptible epidural hematoma. Also no significant fracture- associated foraminal or spinal stenosis is seen. Patient is scheduled for a dedicated thoracic spine CT. 2. Mild superior endplate concavity of T3 and T4 I believe are nonacute. 3. Otherwise negative for an acute process. Old bilateral clavicle and right rib fractures. No acute intrathoracic abnormality is demonstrated. Head CT 05/31/18 22:11 CONCLUSION: 1. No bleed or other acute intracranial abnormality. 2. Right temporal arachnoid cyst. . 52 year old male with T5 superior endplate fracture without retropulsion, nonop s/p ext fix for left tibia fx, ORIF left calcaneous fracture, I&D and vac placement for degloving of left ankle and foot with ortho Lumbar Spine CT 05/31/18 22:11 CONCLUSION: 1. No acute fracture or subluxation. 2. Mild degenerative disc disease in the lower lumbar spine. Thoracic Spine CT 05/31/18 22:11 CONCLUSION: 1. Acute mild anterior prostatic fracture of the T5 superior endplate with minimal buckling posteriorly but no significant retropulsed fragments or bony neural foraminal compromise. There is a moderate associated prevertebral hematoma. 2. T4 superior endplate Schmorl's node likely accounts for abnormality noted on chest CT. 3. Sagittal alignment is maintained and there is no significant bony central canal compromise. Plan: cont nonsurgical management of T5 fracture with TLSO when out of bed cont supportive care with analgesics as needed for pain cont therapy cont mgt per ortho for leg injuries
[2018-06-06] MEDS: Morphine Inj 4 MG/ML Vial IV.PUSH PRN ×2 (03:01→20:40)
[2018-06-06 05:29] LABS: Baso % (Auto) 0.5 % (0.0-2.0); Eos # (Auto) 0.2 th/mm3 (0.0-0.4); Eos % (Auto) 1.7 % (0.0-4.0); Hematocrit 25.5 % (39.0-51.0); Hemoglobin 8.7 gm/dL (13.0-17.0); Lymph # (Auto) 1.5 th/mm3 (1.0-4.8); Lymph % (Auto) 15.8 % (9.0-44.0); Mean Corpuscular HGB Conc 34.3 % (32.0-36.0); Mean Corpuscular Hemoglobin 30.7 pg (27.0-34.0); Mean Corpuscular Volume 89.7 fL (80.0-100.0); Mean Platelet Volume 6.9 fL (7.0-11.0); Mono # (Auto) 1.2 th/mm3 (0.0-0.9); Mono % (Auto) 12.4 % (0.0-8.0); Neut # (Auto) 6.6 th/mm3 (1.8-7.7); Neut % (Auto) 69.6 % (16.0-70.0); Platelet Count 254 th/mm3 (150-450); Red Blood Count 2.84 mil/mm3 (4.50-5.90); Red Cell Distribution Width 14.1 % (11.6-17.2); White Blood Count 9.5 th/mm3 (4.0-11.0)
[2018-06-06 05:40] LABS: Anion Gap 8 meq/L (5-15); Blood Urea Nitrogen 11 mg/dL (7-18); Calcium 8.8 mg/dL (8.5-10.1); Carbon Dioxide 26.8 meq/L (21.0-32.0); Chloride 100 meq/L (98-107); Glomerular Filtration Rate Greater Than 89 mL/min (>89); Glucose,Random 104 mg/dL (74-106); Potassium 4.4 meq/L (3.5-5.1); Sodium 135 meq/L (136-145)
--- NOTE | 2018-06-06 06:38 | P.PNOP ---
Subjective Interval history: s/p I&D and ORIF with vac application left leg s/p exfix left tibia doing well. no changes Physical Exam Vital signs: Vital Signs 06/05/18 08:00 06/05/18 12:00 06/05/18 16:00 Temperature 98.1 F 97.8 F 97.2 F L Pulse Rate 86 92 H 93 H Respiratory Rate 16 18 16 Blood Pressure 106/69 111/71 109/66 Pulse Oximetry 97 97 96 06/05/18 20:00 06/06/18 00:00 06/06/18 04:00 Temperature 98.6 F 97.4 F L 97.7 F Pulse Rate 99 H 94 H 83 Respiratory Rate 20 20 20 Blood Pressure 113/76 104/61 110/72 Pulse Oximetry 96 95 96 Intake & Output 06/05/18 06/05/18 06/06/18 06:59 18:59 06:59 Intake Total 1410 / 1410 50 / 50 320 / 320 Output Total 400 / 400 45 / 45 Balance 1010 / 1010 5 / 5 320 / 320 Weight 89.4 kg 89.4 kg Intake: IV 1150 / 1150 50 / 50 Ancef 2 GM Premix Inj 2 gm In 50 / 50 50 / 50 50 ml @ 100 mls/hr IV.SIG Q8H RAULITO Rx#:[id number] Oral 260 / 260 320 / 320 Output: Wound Vac Amount 400 / 400 45 / 45 Left Lower Leg 400 / 400 45 / 45 Other: Mode Setting Left Lower Leg Continuous Intermittent Intermittent # Voids 150 4 Date of Last Bowel Movement 06/02/18 06/02/18 Narrative: LLE: +exfix. pin sites clean and dry. +vac. good seal. - Urinary Catheter Management Indwelling Urethral Catheter Cath placed during this visit: yes, but has since been removed by the nurse Reason for continuing: Other continuation reason Insertion date: 05/31/18 Removal date: 06/01/18 Results - Labs CBC & Chem 7: 06/06/18 04:56 06/06/18 04:56 Laboratory Results - last 24 hr 06/06/18 06/06/18 04:56 04:56 WBC 9.5 RBC 2.84 L Hgb 8.7 L Hct 25.5 L MCV 89.7 MCH 30.7 MCHC 34.3 RDW 14.1 Plt Count 254 D MPV 6.9 L Neut % (Auto) 69.6 Lymph % (Auto) 15.8 [place] % (Auto) 12.4 H Eos % (Auto) 1.7 Baso % (Auto) 0.5 Neut # (Auto) 6.6 Lymph # (Auto) 1.5 [place] # (Auto) 1.2 H Eos # (Auto) 0.2 Baso # (Auto) 0.0 WBC Differential . Differential Comment Auto diff final Sodium 135 L Potassium 4.4 Chloride 100 Carbon Dioxide 26.8 Anion Gap 8 BUN 11 Creatinine 0.65 Estimated GFR Greater than 89 Random Glucose 104 Calcium 8.8 Assessment and Plan - Assessment and Plan 1) Grade 3 open left tibia fracture, segmental s/p revision exfix and I&D - POD 4 2) Open left calcaneus fracture s/p ORIF - POD 4 3) Unstable left bimalleolar ankle fracture dislocation. 4) Degloving injury left ankle and foot s/p I&D and vac application - POD 4 PLAN: -Continues NWB LLE -Ice / elevate daily -maintain exfix and vac at all times -vac settings: 100mmHg, 3:1 -surgery today with Dr Parekh for I&D/vac change and possible IMN of tibia
[2018-06-06] MEDS: Enoxaparin Inj 30 MG/0.3 ML Syringe SQ SCH ×2 (08:45→20:37)
[2018-06-06] MEDS: Calcium/Vitamin D 250/125 MG Tablet PO SCH ×3 (08:46→17:48)
[2018-06-06] MEDS: Famotidine 20 MG Tablet PO SCH ×2 (08:46→20:38)
[2018-06-06] MEDS: Senna/Docusate Sodium 8.6/50 MG Tablet PO SCH ×2 (08:46→20:39)
[2018-06-06] MEDS: Pantoprazole Inj 40 MG Vial IV.PUSH SCH (08:47)
--- NOTE | 2018-06-06 08:48 | P.PNNS ---
Subjective Interval history: attempted to see patient, not in room, currently in OR with ortho <Elsy Lin - Last Filed: 06/06/18 08:47> Physical Exam Vital signs: Vital Signs 06/05/18 12:00 06/05/18 16:00 06/05/18 20:00 Temperature 97.8 F 97.2 F L 98.6 F Pulse Rate 92 H 93 H 99 H Respiratory Rate 18 16 20 Blood Pressure 111/71 109/66 113/76 Pulse Oximetry 97 96 96 06/06/18 00:00 06/06/18 04:00 06/06/18 07:30 Temperature 97.4 F L 97.7 F 97.5 F L Pulse Rate 94 H 83 80 Respiratory Rate 20 20 18 Blood Pressure 104/61 110/72 107/56 L Pulse Oximetry 95 96 94 L Intake & Output 06/05/18 06/06/18 06/06/18 18:59 06:59 18:59 Intake Total 50 / 50 320 / 320 400 / 400 Output Total 45 / 45 Balance 5 / 5 320 / 320 400 / 400 Weight 89.4 kg Intake: IV 50 / 50 Ancef 2 GM Premix Inj 2 gm In 50 / 50 50 ml @ 100 mls/hr IV.SIG Q8H RAULITO Rx#:[id number] Oral 320 / 320 Intake (Blood Product) Amt 400 / 400 Rbc As-3 Leukoreduced Unit 400 / 400 [id number] Output: Wound Vac Amount 45 / 45 Left Lower Leg 45 / 45 Other: Mode Setting Left Lower Leg Intermittent Intermittent # Voids 4 Date of Last Bowel Movement 06/02/18 - Urinary Catheter Management Indwelling Urethral Catheter Cath placed during this visit: yes, but has since been removed by the nurse Reason for continuing: Other continuation reason Insertion date: 05/31/18 Removal date: 06/01/18 <Elsy Lin - Last Filed: 06/06/18 08:47> Narrative: Ms Trujillo is alert, awake. Comfortable, in no acute distress. Speech is fluent. Cranial nerve examination: pupils to be equal, round and reactive to light. Extra-ocular movements are intact. Facial motor and sensory function are normal and symmetrical. Gross hearing appears intact. Sternocleidomastoid and trapezius muscles are symmetrical. Other cranial nerves are intact. Neck is soft and supple with a good range of motion without pain. Muscle strength is normal in all muscle groups of both upper and lower extremities. Sensory examination is intact to light touch and pin prick in both the upper and lower extremities. Deep tendon reflexes are symmetrical in both upper and lower extremities. There is a bilateral plantar flexion response. Cerebellar examination is unremarkable, without deficits. Lungs are clear Heart regular rhythm is regular rate Skin warm and dry - Urinary Catheter Management Indwelling Urethral Catheter Cath placed during this visit: no <Michael Villar - Last Filed: 06/10/18 16:02> Assessment and Plan - Plan I have reviewed the clinical and radiological findings Chest X-Ray 05/31/18 22:07 CONCLUSION: No acute abnormality demonstrated. Pelvis X-Ray 05/31/18 22:07 CONCLUSION: No evidence of pelvic fracture. Abdomen/Pelvis CT 05/31/18 22:11 CONCLUSION: 1. No acute abnormality. 2. Small cysts of both kidneys. 3. Small hiatal hernia. 4. Old lower right rib fractures. No acute bony abnormality is demonstrated. Cervical Spine CT 05/31/18 22:11 CONCLUSION: 1. Intact cervical spine. 2. Mild degenerative changes at C5/C6. Chest CT 05/31/18 22:11 CONCLUSION: 1. Mild acute compression/burst fracture of T5 with a small paraspinous hematoma but no perceptible epidural hematoma. Also no significant fracture- associated foraminal or spinal stenosis is seen. Patient is scheduled for a dedicated thoracic spine CT. 2. Mild superior endplate concavity of T3 and T4 I believe are nonacute. 3. Otherwise negative for an acute process. Old bilateral clavicle and right rib fractures. No acute intrathoracic abnormality is demonstrated. Head CT 05/31/18 22:11 CONCLUSION: 1. No bleed or other acute intracranial abnormality. 2. Right temporal arachnoid cyst. . 52 year old male with T5 superior endplate fracture without retropulsion, nonop s/p ext fix for left tibia fx, ORIF left calcaneous fracture, I&D and vac placement for degloving of left ankle and foot with ortho Lumbar Spine CT 05/31/18 22:11 CONCLUSION: 1. No acute fracture or subluxation. 2. Mild degenerative disc disease in the lower lumbar spine. Thoracic Spine CT 05/31/18 22:11 CONCLUSION: 1. Acute mild anterior prostatic fracture of the T5 superior endplate with minimal buckling posteriorly but no significant retropulsed fragments or bony neural foraminal compromise. There is a moderate associated prevertebral hematoma. 2. T4 superior endplate Schmorl's node likely accounts for abnormality noted on chest CT. 3. Sagittal alignment is maintained and there is no significant bony central canal compromise. Plan: cont nonsurgical management of T5 fracture with TLSO when out of bed cont supportive care with analgesics as needed for pain cont therapy cont mgt per ortho for leg injuries, currently now in OR discussed with family member again in room regarding his T5 fracture <Elsy Lin - Last Filed: 06/06/18 08:47> - Plan cont nonsurgical management of T5 fracture with TLSO orthosis cont supportive care with analgesics as needed for pain control Neuro: neuro checks in a serial fashion. Pulmonary: aggressive pulmonary toilette, nasotracheal suction, and breathing treatments with nebulizers. Daily PT and OT Renal: Continue to monitor closely urine output, BUN and creatinine Endocrine: Continue to Monitor serial Acu checks and SSI as needed in detail ID continue to monitor for signs of infection Continue Protonix for stress ulcer prophylaxis Continue Pro hose and SCD's for DVT prophylaxis The exam, history, and the medical decision-making described in the above note were completed with the assistance of the mid-level provider. I reviewed and agree with the findings presented. I attest that I had a [id number] encounter with the patient on the same day, and personally performed and documented my assessment and findings in the medical record. <Michael Villar - Last Filed: 06/10/18 16:02>
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
[2018-06-06] MEDS ORDERED: Famotidine PF Inj 20 MG/2 ML Vial ONE (09:24)
[2018-06-06] MEDS ORDERED: fentaNYL Citrate Inj 100 MCG/2 ML Ampul ONE (09:24)
[2018-06-06] MEDS ORDERED: Lidocaine PF 1% Inj 5 ML Syringe OTHER ONE (11:38)
[2018-06-06] MEDS ORDERED: Post-op Orders (for Pharmacy) OTHER STA (12:31)
--- NOTE | 2018-06-06 12:36 | P.OP ---
- Preoperative Diagnosis (1) Open fracture of left distal tibia, type III, with routine healing (2) Fracture of left talus (3) Bimalleolar fracture of left ankle Date of procedure: 06/06/18 Procedure: Irrigation and debridement of open left tibia fracture, irrigation and debridement of open left ankle fracture, wound VAC dressing change Surgeon: Jenaro Bennett MD Lunch Truck Driver: EZ Haro PA-C The surgical procedure was assisted by my physician speech pathologist assistant. My P.A. presence was necessary throughout this case for the manipulation and positioning of the surgical extremity. My P.A. was assisting me throughout the duration of this procedure. The skill set of a physician speech pathologist assistant was medically necessary to complete this procedure. During the surgical case the surgical rn was working at the back table and the physician speech pathologist assistant was directly assisting me. Operation and Findings: Felicitas returned to the operating room today for repeat irrigation debridement of left leg. Informed consent was obtained and OpSite was marked. He is brought the operating room. Is given IV sedation and general anesthesia. Left leg was prepped with alcohol followed Hibiclens and draped in the usual sterile fashion. Timeout procedure was performed. He received IV antibiotics. Procedure began with irrigation debridement of the open tibia fracture. The open proximal tibia fracture was exposed. Curettes were used to debride bone. Rongeurs were used to debride soft tissue. There were areas of necrotic skin and fascia. This was excised sharply. The wound was now thoroughly irrigated with pulsatile lavage. Next he was turned to the left ankle. The traumatic laceration over the medial ankle was examined. There was a large area of necrotic skin. The necrotic skin was excised using a scalpel. The medial malleolus fracture was visualized. Fracture was cleaned with curettes. Wound was now thoroughly irrigated with pulsatile lavage. The remainder of the open wounds were also thoroughly irrigated sterile saline. At this point attention was turned to wound VAC dressing. VAC dressings were cut to fit the open wound. VAC dressings were sealed appropriately. Sterile dressings were applied. Patient was awakened and transferred to recovery room in stable condition. Patient will likely need multiple surgeries on his leg. Patient may benefit from plastic surgery for possible free tissue transfer over the left ankle and muscle flap for the left proximal tibia. I would discuss this with plastic surgery. If patient has continued skin loss and necrosis, he will likely need an amputation.
[2018-06-06] MEDS ORDERED: ceFAZolin Inj 2,000 MG in Sodium Chlor 0.9% Inj 80 ML IV.SIG SCH (13:00)
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
[2018-06-06] MEDS: Gentamicin/NS 80 mg Premix 100 ML IV.SIG SCH (20:37)
[2018-06-06] MEDS: Melatonin 5 MG Tablet PO SCH (20:37)
[2018-06-06] MEDS: ceFAZolin 2 GM Premix Inj 2 GM/50 ML PIGGYBACK IV.SIG SCH (20:37)
[2018-06-06 23:35] VITALS: RESP 18
[2018-06-07] MEDS: Gentamicin/NS 80 mg Premix 100 ML IV.SIG SCH ×2 (04:19→11:52)
[2018-06-07] MEDS: ceFAZolin 2 GM Premix Inj 2 GM/50 ML PIGGYBACK IV.SIG SCH ×2 (04:19→11:50)
[2018-06-07] MEDS: Morphine Inj 4 MG/ML Vial IV.PUSH PRN ×3 (04:20→16:34)
[2018-06-07 05:04] LABS: Hemoglobin 8.7 gm/dL (13.0-17.0)
--- NOTE | 2018-06-07 06:45 | P.PNOP ---
Subjective Interval history: POd 1 s/p I&D vac change left leg POD 5 s/p ORIF left calcaneus s/p left tibia shaft fx with exfix s/p left talus fx doing well. no changes. Physical Exam Vital signs: Vital Signs 06/06/18 07:30 06/06/18 13:11 06/06/18 13:15 Temperature 97.5 F L 97.4 F L Pulse Rate 80 75 84 Respiratory Rate 18 20 16 Blood Pressure 107/56 L 132/74 131/86 Pulse Oximetry 94 L 100 100 06/06/18 13:30 06/06/18 13:45 06/06/18 15:32 Temperature 97.5 F L Pulse Rate 88 89 Respiratory Rate 17 15 16 Blood Pressure 119/82 120/80 Pulse Oximetry 100 100 06/06/18 16:00 06/06/18 18:45 06/06/18 20:00 Temperature 97.5 F L 97.3 F L Pulse Rate 99 H 94 H Respiratory Rate 17 17 18 Blood Pressure 119/68 116/78 Pulse Oximetry 97 96 06/07/18 00:00 06/07/18 04:00 Temperature 98.3 F 97.5 F L Pulse Rate 95 H 98 H Respiratory Rate 18 18 Blood Pressure 121/65 106/69 Pulse Oximetry 95 96 Intake & Output 06/06/18 06/06/18 06/07/18 06:59 18:59 06:59 Intake Total 320 / 320 2050 / 2050 300 / 300 Output Total 425 / 425 Balance 320 / 320 1625 / 1625 300 / 300 Weight 89.4 kg Intake: IV 300 / 300 Gentamicin/NS 80 mg Premix 100 200 / 200 ML @ 200 mls/hr IV.SIG Q8H [facility] Rx#:[id number] Ancef 2 GM Premix Inj 2 gm In 100 / 100 50 ml @ 100 mls/hr IV.SIG Q8H [facility] Rx#:[id number] Oral 320 / 320 650 / 650 Anesthesia Amount 1000 / 1000 Intake (Blood Product) Amt 400 / 400 Rbc As-3 Leukoreduced Unit 400 / 400 [id number] Output: Urine 400 / 400 Estimated Blood Loss 25 / 25 Other: Mode Setting Left Ankle Intermittent Intermittent Left Lower Leg Intermittent Intermittent Intermittent # Voids 4 Date of Last Bowel Movement 06/02/18 06/04/18 06/04/18 Narrative: LLE: dressings clean and dry. intact. NVI. +exfix. +vac x 2. good seals. - Urinary Catheter Management Indwelling Urethral Catheter Cath placed during this visit: yes, but has since been removed by the nurse Reason for continuing: Other continuation reason Insertion date: 05/31/18 Removal date: 06/01/18 Results - Labs CBC & Chem 7: 06/07/18 04:04 06/06/18 04:56 Laboratory Results - last 24 hr 06/02/18 06/07/18 04:42 04:04 Hgb 8.7 L Hct 26.0 L MTS Gel Crossmatch See Detail Assessment and Plan - Assessment and Plan 1) Grade 3 open left tibia fracture, segmental s/p revision exfix and I&D 2) Open left calcaneus fracture s/p ORIF - POD 5 3) Unstable left bimalleolar ankle fracture dislocation. 4) Degloving injury left ankle and foot s/p I&D and vac application - POD 1 PLAN: -Continues NWB LLE -Ice / elevate daily -maintain exfix and vac at all times -vac settings: 100mmHg, 3:1 -had long discussion with patient today regarding care. unfortunately, has significant skin defects that will prevent further ortho fixation until skin coverage can be achieved. options at this point are transfer to [facility] for free flap vs BKA. will arrange transfer to [facility] for eval for free flap. given the severity of his injuries and damage to soft tissue, there is a chance that BKA is the end result. will transfer so that Dr Arredondo with plastics can evaluate.
[2018-06-07] MEDS: Pantoprazole Inj 40 MG Vial IV.PUSH SCH (08:19)
[2018-06-07] MEDS: Enoxaparin Inj 30 MG/0.3 ML Syringe SQ SCH (08:20)
[2018-06-07] MEDS: Calcium/Vitamin D 250/125 MG Tablet PO SCH ×2 (08:20→12:00)
[2018-06-07] MEDS: Senna/Docusate Sodium 8.6/50 MG Tablet PO SCH (08:20)
[2018-06-07] MEDS: Famotidine 20 MG Tablet PO SCH (08:20)
[2018-06-07 14:11] VITALS: BP 105/74; PULSE 95; TEMP 97.8; O2SAT 98
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
== END 2018-06-07 16:48 | disposition short-term general hospital (02) ==
LOC: NEPI 22:06 → EDBD 22:25 → NEDA 22:25 → N06 23:13
PROVIDERS: ADMIT Surgery; ATTEND Surgery
PROC: ORIFCAL (2018-06-02 08:57)